=== PATIENT | female | born 1965 | race Caucasian/White ===

== ENCOUNTER 2021-05-03 11:13 | Outpatient (AMB) | payer BC, SELFPAY ==
--- NOTE | 2021-05-03 11:32 | URONOTE_ITS ---
Intake Vital Signs 05/03/21 11:33 Height 1.83 m Height Method Stated Weight 121.223 kg Weight Measurement Method Standing Scale BMI 36.2 Temp 97.7 F Temp Source Temporal Artery Scan Pulse 78 Pulse Source Monitor Respiration 19 BP 148/91 H Blood Pressure Source Automatic Cuff Blood Pressure Location Left Upper Arm Position Sitting Intake Visit Reasons: Uro Cystocopy in office Accompanied by: Son Allergy Allergies No Known Allergies Allergy (Verified 05/03/21 11:34) Current Vital Signs Height Height Method Weight Weight Measurement Method Body Mass Index Temperature Temperature Source 1.83 m Stated 121.223 kg Standing Scale 36.2 97.7 F Temporal Artery Scan 05/03/21 11:33 05/03/21 11:33 05/03/21 11:33 05/03/21 11:33 05/03/21 11:33 05/03/21 11:33 05/03/21 11:33 Pulse Rate Pulse Source Respiratory Rate Blood Pressure Blood Pressure Source Blood Pressure Location Blood Pressure Position 78 Monitor 19 148/91 H Automatic Cuff Left Upper Arm Sitting 05/03/21 11:33 05/03/21 11:33 05/03/21 11:33 05/03/21 11:33 05/03/21 11:33 05/03/21 11:33 05/03/21 11:33 Nursing Documentation Social History Living Situation History Housing: House Tobacco History Smoking Status: Light (< 1 pack/day) Alcohol History Alcohol Intake: Current Office Procedures Uro Cystoscopy in office Office Procedure Informed consent given: Yes Consent signed: Yes Time out staff in room: Yes IMMEDIATELY PRIOR TO START OF PROCEDURE: ALL MEMBERS of the procedural team are in attendance and actively involved together in the TIME-OUT and verified as applies to the patient:: Correct Patient Identity, Correct Site, Consent Signed and Accurate, Team Agrees on Procedure, Patient has completed pre-procedure preparations, Antibiotic prophylaxis, Pre-procedure medications, Review of allergies and potential blood loss, Safety Precautions are in place based on patient history, Correct Patient Positioning, Procedural site marked by appropriate provider, Procedural site marking is visible after prep and draping, Relevant images and results are properly labeled and displayed, Reqd blood products, implants, devices and necessary equip available, Specimen container(s) and lab req(s) are available & labeled properly., H&P, assessments, and other pertinent documents are available and Antibiotics are administered, antibiotic irrigation fluids prepared. Time out verified: Yes Time out date: 05/03/21 Time out time: 11:39 Sterilizing agent: betadine Type of anesthesia: local Type of scope: rigid Charges for this visit: My Supervising Practitioner for this visit is:: Jose Cortes Uro Level of Care Nursing/Assessment/Reassessment Patient Status: Established Patient Nursing Assessment/Reassessment: Update [facility] data in EMR, Vital Signs and Medication Reconciliation Coordination of Care: Comp Pt/Fam Ed for care and Consent,records obtained Miscellaneous Interventions: Phys Asssit w/procedure Established Patient Point Assignment: 80 Procedure IM Injection: Yes Transrectal Ultrasound: No Office Meds lorazepam Performing Provider: Jose Cortes MD Administered by: KAR Vega on 05/03/21 11:39 Dose Route Admin Location Lot Number Expiration Date [employer] 1 mg PO gentamicin Performing Provider: Jose Cortes MD Administered by: KAR Vega on 05/03/21 11:39 Dose Route Admin Location Lot Number Expiration Date [employer] 120 mg IM RIGHT GLUT lidocaine HCl Performing Provider: Jose Cortes MD Administered by: KAR Vega on 05/03/21 11:39 Dose Route Admin Location Lot Number Expiration Date [employer] 1 applic topical hydrocodone-acetaminophen 5-325 mg Performing Provider: Jose Cortes MD Administered by: KAR Vega on 05/03/21 11:39 Dose Route Admin Location Lot Number Expiration Date N[employer] 1 tab PO [facility] Office Visit Office Visit Date of visit:: May 03, 2021 11:13 Allergies & Home Medications: Allergies No Known Allergies Allergy (Verified 04/10/21 10:44) Visit: Reason for visit: [] Office Visit findings: [] Urology Cystoscopy Cystoscopy Procedure Date: May 03, 2021 11:13 Pre-procedure diagnosis:: Bilateral kidney stones s/p bilateral R IR left ureteral stent placement atrophic kidney left side with 9 mm stone in the lower pole with a 20% of function Post-procedure diagnosis:: Same Procedure:: Cystoscopic examination removal of left ureteral stent Anesthetic:: 2% lidocaine Indication(s): This is a 55-year-old female who is seen in urology office she is post of bilateral R IR left ureteral stent placement she was recommended removal of the stent procedure and complications were discussed with patient in detail informed consent is obtained Procedure Description:: The patient received 120 mg Gentamicin IM pre-op prophylaxis. Informed consent was obtained for the procedure. The patient was prepped in a sterile manner. Local anesthetic was placed in the urethra. Cystoscopy was then performed. The urethra had no intrinsic lesions. Examination of the bladder revealed no evidence of cancerous lesions, papillary or polyp type, lesions or stones. Both ureters were putting out clear urine. There was stent coming out of left ureteral orifice was removed along with the instrument. The bladder was completely drained and the scope was removed. The patient tolerated the procedure well. Post-op instructions were given. The patient is to call the office should any problems occur. Patient disposition 1 ultrasound of the kidneys to [facility] 3 Macrobid 100 mg p.o. twice daily follow-up appointment in urology office drinking of fluids so that she has urinary output of 2400 cc in 24 hours thank you
[2021-05-03 11:33] VITALS: BP 148/91; PULSE 78; RESP 19; TEMP 36.5; BMI 36.2
[2021-05-03 11:43] LABS: Bilirubin,Urine Clinitek Negative (Negative); Blood,Urine Clinitek Trace-intact (Negative); Glucose, Urine Clinitek Negative (Negative); Ketones,Urine Clinitek Negative (Negative); Leukocyte Esterase,Urine Clin 3+ (Negative); Nitrite,Urine Clinitek Positive (Negative); Protein,Urine Clinitek 1+ (Neg - Trace); Urobilinogen,Urine Clinitek >= 8.0 mg/dL (0.0-1.0)
== END 2021-05-03 12:29 | disposition home or self-care (01) ==
LOC: HODURO 11:13
PROVIDERS: PCP Family Medicine; Referring Provider Family Medicine; Visit Provider Urology

== ENCOUNTER → 2024-10-25 | Outpatient (CLI) | payer BC, SELFPAY | END | disposition home or self-care (01) | LOC: SLDO 16:21 | PROVIDERS: Referring Provider Urology; Visit Provider Urology | DX: N39.0 Urinary tract infection, site not specified (principal) | CPT/HCPCS: 87077; 87086; 87186 ==

== ENCOUNTER → 2024-10-25 | Outpatient (BNVA) | payer BC, SELFPAY | END | disposition home or self-care (01) | PROVIDERS: PCP Family Medicine; Referring Provider Family Medicine; Visit Provider Urology | DX: N39.0 Urinary tract infection, site not specified (principal); N20.0 Calculus of kidney; N26.1 Atrophy of kidney (terminal); Z87.891 Personal history of nicotine dependence | CPT/HCPCS: 51701; 81003; 99212; G0463 ==

== ENCOUNTER → 2025-03-24 | Outpatient (BNVA) | payer BC, SELFPAY | END | disposition home or self-care (01) | PROVIDERS: PCP Family Medicine; Referring Provider Family Medicine; Visit Provider Urology | DX: N20.0 Calculus of kidney (principal); N39.0 Urinary tract infection, site not specified; E66.9 Obesity, unspecified; Z71.3 Dietary counseling and surveillance; Z68.39 Body mass index [BMI] 39.0-39.9, adult; Z87.442 Personal history of urinary calculi | CPT/HCPCS: 81003; 99212; G0463 ==

== ENCOUNTER → 2025-03-31 | Outpatient (CLI) | payer BC, SELFPAY ==
[2025-03-31 12:13] LABS: Basophils # (Auto) 0.0 Thou/mm3 (0.0-0.2); Basophils % (Auto) 0 % (0-2.5); Eosinophils # (Auto) 0.2 Thou/mm3 (0.0-0.5); Eosinophils % (Auto) 2 % (0-10); Hematocrit 41.7 % (36.0-46.0); Hemoglobin 13.9 g/dL (12.0-16.0); Immature Granulocytes Auto 0.03 Thou/mm3 (0.00-0.00); Lymphocytes # (Auto) 2.5 Thou/mm3 (1.0-4.8); Lymphocytes % (Auto) 27 % (10-50); Mean Corpuscular HGB Conc 33.3 g/dl (31.0-37.0); Mean Corpuscular Hemoglobin 31.2 pg (25.0-35.0); Mean Corpuscular Volume 94 fL (80-100); Monocytes # (Auto) 0.6 Thou/mm3 (0.0-0.8); Monocytes % (Auto) 6 % (0-12); Neutrophils # (Auto) 5.9 Thou/mm3 (1.8-7.7); Neutrophils % (Auto) 64 % (37-80); Nucleated Red Blood Cell # 0.00 Thou/mm3 (0.00-0.00); Nucleated Red Blood Cell % 0 /100 WBC (0); Platelet Count 202 Thou/mm3 (140-440); RDW Standard Deviation 43.2 fL (36.4-46.3); Red Blood Count 4.45 Miln/mm3 (4.00-5.20); White Blood Count 9.2 Thou/mm3 (3.6-11.0)
[2025-03-31 12:32] LABS: Glucose Estimated Average 140 mg/dL (80-131); Hemoglobin A1C 6.5 % Hgb (4.8-6.0)
[2025-03-31 12:38] LABS: Alanine Aminotransferase 14 U/L (10-49); Albumin, Serum 4.5 gm/dL (3.4-4.8); Albumin/Globulin Ratio 1.9 (1.2-2.2); Alkaline Phosphatase 55 U/L (46-116); Anion Gap 9 (7-16); Aspartate Amino Transferase 18 U/L (0-34); BUN/Creatinine Ratio 14 Ratio (12-20); Bilirubin,Total 0.7 mg/dL (0.3-1.2); Blood Urea Nitrogen 11 mg/dL (9-23); Calcium 9.7 mg/dL (8.3-10.6); Calcium (Corrected) 9.7 mg/dL (8.5-10.1); Carbon Dioxide 25.6 mMol/L (20.0-31.0); Cardiac Risk Estimate 3.3 RATIO (3.7-5.6); Chloride 109 mMol/L (98-107); Cholesterol 182 mg/dL (132-200); Creatinine (Component) 0.8 mg/dL (0.6-1.3); Globulin 2.4 gm/dL (2.3-3.5); Glucose 130 mg/dL (74-106); HDL Cholesterol 55 mg/dL (40-60); LDL Cholesterol,Calculated 106 mg/dL (0-130); Osmolality,Calculated 288 (275-295); Potassium 4.5 mMol/L (3.4-5.1); Sodium 144 mMol/L (136-145); Thyroid Stimulating Hormone 1.71 uIU/mL (0.55-4.78); Total Protein 6.9 gm/dL (5.7-8.2); Triglycerides 103 mg/dL (30-150); eGFR > 60 See Note
[2025-03-31 12:44] LABS: Creatinine MALB Rnd Ur 111 mg/dL (30-125); Microalbumin Creat Ratio 26 mg/gCrea (<30); Microalbumin, Random Urine 29 mg/L (0-300)
== END | disposition home or self-care (01) ==
LOC: COPL 10:58
PROVIDERS: PCP Family Medicine; Referring Provider Student in an Organized Health Care Education/Training Program; Visit Provider Student in an Organized Health Care Education/Training Program
DX: I12.9 Hypertensive chronic kidney disease with stage 1 through stage 4 chronic kidney disease, or unspecified chronic kidney disease (principal); N18.9 Chronic kidney disease, unspecified; K76.0 Fatty (change of) liver, not elsewhere classified
CPT/HCPCS: 36415; 80053; 80061; 82043; 82570; 83036; 84443; 85025

== ENCOUNTER → 2025-04-17 | Outpatient (CLI) | payer BC, SELFPAY ==
--- NOTE | 2025-04-17 09:48 | XR_ITS ---
Examination: CT abdomen and pelvis without contrast. Coronal 3-D reconstructions. Sagittal 2-D reconstructions. Date and time of exam: April 17, 2025, 10:53 a.m., comparison April 17, 2022 INDICATIONS: Onset left-sided flank pain today CTDI: vol (mGy): 16.4 DLP: (mGycm): 1017 Technique: Axial images of the abdomen have been obtained, 3 mm slice thickness Intravenous contrast material has not been administered. Low dose protocols were performed. One or more of the following dose reduction techniques were used; automated exposure control, adjustment of the mA and/or KV according to patient size, use of iterative reconstruction technique. Findings: No focal liver or splenic lesions Gallstones No pancreatic or adrenal mass Bilateral renal calculi 1 to 3 mm Small left kidney with severe scarring No hydronephrosis or ureteral calculi Normal appendix No bowel obstruction No pelvic mass No bladder mass IMPRESSION: Bilateral nonobstructing renal calculi Small left kidney with severe renal scarring No hydronephrosis or ureteral calculi
== END | disposition home or self-care (01) ==
LOC: SCAT 09:31
PROVIDERS: PCP Family Medicine; Referring Provider Urology; Visit Provider Urology
DX: N20.0 Calculus of kidney (principal); N28.89 Other specified disorders of kidney and ureter
CPT/HCPCS: 74176